=== PATIENT | male | born 1940 | race Caucasian/White ===

== ENCOUNTER 2016-05-11 14:59 | Emergency (ER) | payer OTHER ==
[2016-05-11 15:10] VITALS: RESP 18; TEMP 98.2
[2016-05-11] MEDS ORDERED: NS 500 ML IV ONE (15:28)
--- NOTE | 2016-05-11 15:32 | EDPHY ---
H & P Stated Complaint: sob on and off for 2 days HPI/ROS: CHIEF COMPLAINT: Shortness of breath HISTORY OF PRESENT ILLNESS: intermittent dyspnea over the past week and a half. This started he returned from a trip to [place]. The symptoms are described as difficulty taking a deep breath that then resolved. Associated with shortness of breath at rest. Worse with exertion. No chest pain of any kind over the past 2 days but he did have a short course of very minimal pain previous to that. No fever or chills. No cough or congestion. No lower extremity erythema, edema or pain. However he is concerned because he has the same symptoms he has 6 years ago when he was diagnosed with pulmonary embolism. Does have a recent flight to [place] that he return from last Monday. No other associated complaints or modifying factors. Currently taking aspirin and no other anticoagulants REVIEW OF SYSTEMS: Ten systems reviewed and are negative unless otherwise noted in the HPI EXAMINATION General Appearance: Alert, no distress Head: normocephalic, atraumatic Eyes: Pupils equal and round, no conjunctival pallor or injection ENT, Mouth: Mucous membranes moist. Uvula midline. No erythema or edema. Neck: Normal inspection, supple, non-tender Respiratory: Lungs are clear to auscultation . No wheezing, rhonchi or crackles. No diminishment of distress. Cardiovascular: Tachycardic rate of 106 beats per minute. Normal rhythm. Systolic murmur. pulses intact distally. Gastrointestinal: Abdomen is soft and nontender Back: non-tender, no bony abnormalities Neurological: A&O, nonfocal, normal gait Skin: Warm and dry, no rash Extremities: Nontender, no pedal edema . No evidence of DVT Psychiatric: Mood and affect normal DIFFERENTIAL DIAGNOSES: Including but not limited to PE, shortness of breath, pneumonia, ACS, bronchitis, pleural effusion MDM: 2:30 p.m. dyspnea consistent with previous pulmonary embolism 6 years ago. This has been present on and off for the past week and a half but worsened last night. He has no pain at this time and has had minimal pain at all over the past week and a half. Vital signs are within normal limits with mild tachycardia. I have ordered CT scan of the chest rule out PE. EKG and labs are pending at this time. 4:14 p.m. patient is currently in CT scan at this time. Laboratory studies reveal a normal creatinine on the point of care i-STAT. His CBC is unremarkable. Remainder of labs are pending at this time. EKG is unremarkable for any changes other than a new right bundle branch block. No acute ischemia. 4:40 p.m. contacted by radiologist Dr. Merrill. CT scan of the chest has no evidence of PE. There is some calcification of the ascending aorta and the coronary arteries but no acute findings. I discussed this with the patient at this time. He was pleased to hear this. Vital signs remained stable. His laboratory studies are well within normal limits. This includes a negative troponin and negative BNP. He is comfortable with being discharged home at this time. I do feel he is stable and safe to do so as he has had no chest pain of any kind. He will follow up with his primary care physician to discuss with Pulmonary follow-up should they deem that necessary. He is instructed to return to the emergency department should he have any onset of chest pain. EKG: Interpreted by Dr. Muniz SUPERVISION: Patient was evaluated in conjunction with the supervising physician. Please see their note for details. Source: Patient - Personal History Current Tetanus Diphtheria and Acellular Pertussis (TDAP): Yes - Medical/Surgical History Other PMH: PE, BACK CYST REMOVED, ARTHRITIS, HERNIA - Social History Smoking Status: Never smoked Constitutional: Initial Vital Signs Temperature (C) 98.2 F 05/11/16 15:07 Heart Rate 103 H 05/11/16 15:07 Respiratory Rate 18 05/11/16 15:07 Blood Pressure 163/86 H 05/11/16 15:07 O2 Sat (%) 93 05/11/16 15:07 O2 Delivery Mode Room Air Allergies/Adverse Reactions: No Known Allergies Allergy (Unverified 09/01/09 13:12) Home Medications: Medication Instructions Recorded Lotrel 09/01/09 ASPIRIN 05/11/16 Lipitor 05/11/16 Meloxicam 05/11/16 Medical Decision Making - Data Points Laboratory Results: Laboratory Results 05/11/16 15:45 05/11/16 15:45 05/11/16 05/11/16 05/11/16 15:46 15:45 15:45 WBC RBC Hgb POC Hgb 15.3 gm/dL gm/dL (14.5-17.3) Hct POC Hct 45 % % (42.8-50.6) MCV MCH MCHC RDW Plt Count MPV Neut % (Auto) Lymph % (Auto) [place] % (Auto) Eos % (Auto) Baso % (Auto) Nucleat RBC Rel Count Absolute Neuts (auto) Absolute Lymphs (auto) Absolute Monos (auto) Absolute Eos (auto) Absolute Basos (auto) Absolute Nucleated RBC Immature Gran % Immature Gran # PT 13.5 SEC SEC (12.0-15.0) INR 1.04 (0.83-1.16) APTT 27.8 SEC SEC (23.0-38.0) POC Sodium 139 mEq/L mEq/L (134-144) Sodium 139 mEq/L mEq/L (134-144) POC Potassium 4.0 mEq/L mEq/L (3.3-5.0) Potassium 4.2 mEq/L mEq/L (3.5-5.2) POC Chloride 103 mEq/L mEq/L (96-108) Chloride 102 mEq/L mEq/L (97-110) Carbon Dioxide 26 mEq/l mEq/l (22-31) Anion Gap 11 mEq/L mEq/L (8-16) POC BUN 22 mg/dL mg/dL (7-23) BUN 21 mg/dL mg/dL (7-23) Creatinine 0.9 mg/dL mg/dL (0.7-1.3) POC Creatinine 0.9 mg/dL mg/dL (0.8-1.5) Estimated GFR > 60 Glucose 101 mg/dL H mg/dL (70-100) POC Glucose 104 mg/dL H mg/dL (70-100) Calcium 10.3 mg/dL mg/dL (8.5-10.4) Total Bilirubin 0.6 mg/dL mg/dL (0.1-1.4) Conjugated Bilirubin 0.4 mg/dL mg/dL (0.0-0.5) Unconjugated Bilirubin 0.2 mg/dL mg/dL (0.0-1.1) AST 26 IU/L IU/L (17-59) ALT 34 IU/L IU/L (21-72) Alkaline Phosphatase 72 IU/L IU/L (38-126) Troponin I < 0.012 ng/mL ng/mL (0-0.034) NT-Pro-B Natriuret Pep 95 pg/mL pg/mL (0-125) Total Protein 7.5 g/dL g/dL (6.3-8.2) Albumin 4.4 g/dL g/dL (3.5-5.0) 05/11/16 15:45 WBC 9.23 10^3/uL 10^3/uL (3.80-9.50) RBC 4.85 10^6/uL 10^6/uL (4.40-6.38) Hgb 15.1 g/dL g/dL (13.7-17.5) POC Hgb Hct 43.0 % % (40.0-51.0) POC Hct MCV 88.7 fL fL (81.5-99.8) MCH 31.1 pg pg (27.9-34.1) MCHC 35.1 g/dL g/dL (32.4-36.7) RDW 13.2 % % (11.5-15.2) Plt Count 306 10^3/uL 10^3/uL (150-400) MPV 9.3 fL fL (8.7-11.7) Neut % (Auto) 64.6 % % (39.3-74.2) Lymph % (Auto) 23.3 % % (15.0-45.0) [place] % (Auto) 6.2 % % (4.5-13.0) Eos % (Auto) 4.7 % % (0.6-7.6) Baso % (Auto) 1.0 % % (0.3-1.7) Nucleat RBC Rel Count 0.0 % % (0.0-0.2) Absolute Neuts (auto) 5.97 10^3/uL 10^3/uL (1.70-6.50) Absolute Lymphs (auto) 2.15 10^3/uL 10^3/uL (1.00-3.00) Absolute Monos (auto) 0.57 10^3/uL 10^3/uL (0.30-0.80) Absolute Eos (auto) 0.43 10^3/uL H 10^3/uL (0.03-0.40) Absolute Basos (auto) 0.09 10^3/uL 10^3/uL (0.02-0.10) Absolute Nucleated RBC 0.00 10^3/uL 10^3/uL (0-0.01) Immature Gran % 0.2 % % (0.0-1.1) Immature Gran # 0.02 10^3/uL 10^3/uL (0.00-0.10) PT INR APTT POC Sodium Sodium POC Potassium Potassium POC Chloride Chloride Carbon Dioxide Anion Gap POC BUN BUN Creatinine POC Creatinine Estimated GFR Glucose POC Glucose Calcium Total Bilirubin Conjugated Bilirubin Unconjugated Bilirubin AST ALT Alkaline Phosphatase Troponin I NT-Pro-B Natriuret Pep Total Protein Albumin Medications Given: Discontinued Medications Sodium Chloride (Ns) 500 mls @ 0 mls/hr IV ONCE ONE PRN Reason: As Directed Stop: 05/11/16 15:29 Last Admin: 05/11/16 15:50 Dose: 500 mls Point of Care Test Results: 05/11/16 15:46 POC Sodium 139 POC Potassium 4.0 POC Chloride 103 POC BUN 22 POC Creatinine 0.9 POC Glucose 104 H Departure - Departure Disposition: Home, Routine, Self-Care Clinical Impression: Dyspnea Qualifiers: Dyspnea type: shortness of breath Qualified Code(s): R06.02 - Shortness of breath Condition: Good Instructions: Dyspnea (ED) Additional Instructions: Contact primary care physician for further care and possible pulmonology follow-up. Return to the ER for any chest pain of any kind. Return to the ER for worsening shortness of breath or for any fever. Referrals: Joan Edwards MD [Primary Care Provider] - As per Instructions
--- NOTE | 2016-05-11 15:36 | CPEKG ---
Heart Rate: 92 RR Interval: 652 P-R Interval: 152 QRSD Interval: 142 QT Interval: 396 QTC Interval: 490 P [place]: 61 QRS [place]: 56 T Wave [place]: 30 EKG Severity - ABNORMAL ECG - EKG Impression: SINUS RHYTHM EKG Impression: PROBABLE LEFT ATRIAL ABNORMALITY EKG Impression: RIGHT BUNDLE BRANCH BLOCK EKG Impression: BORDERLINE INFERIOR Q WAVES Electronically Signed By: Jocelyn Muniz 11-May-2016 20:42:30
[2016-05-11] MEDS ORDERED: IOPAMIDOL (ISOVUE 370) 100 ML BTL IV ONE (15:55)
[2016-05-11 16:01] VITALS: PULSE 88
[2016-05-11 16:02] LABS: % IMMATURE GRANULYOCYTES 0.2 % (0.0-1.1); ABSOLUTE IMMATURE GRANULOCYTES 0.02 10^3/uL (0.00-0.10); ADD DIFF? NO; ADD MORPH? NO; ADD SCAN? NO; ATYPICAL LYMPHOCYTE FLAG 10 (0-99); FRAGMENT RBC FLAG 0 (0-99); HEMOGLOBIN 15.1 g/dL (13.7-17.5); LEFT SHIFT FLG 0 (0-99); LIPEMIA HEMOLYSIS FLAG 90 (0-99); MEAN CELL HEMOGLOBIN 31.1 pg (27.9-34.1); MEAN CELL HEMOGLOBIN CONCENTR. 35.1 g/dL (32.4-36.7); MEAN CELL VOLUME 88.7 fL (81.5-99.8); MEAN PLATELET VOLUME 9.3 fL (8.7-11.7); PLATELET CLUMPS FLAG 0 (0-99); PLATELET COUNT 306 10^3/uL (150-400); RED BLOOD CELL COUNT 4.85 10^6/uL (4.40-6.38); RED CELL DISTRIBUTION WIDTH 13.2 % (11.5-15.2)
[2016-05-11 16:13] LABS: ALANINE AMINOTRANSFERASE 34 IU/L (21-72); ALBUMIN 4.4 g/dL (3.5-5.0); ALKALINE PHOSPHATASE 72 IU/L (38-126); ANION GAP 11 mEq/L (8-16); APTT 27.8 SEC (23.0-38.0); ASPARTATE AMINOTRANSFERASE 26 IU/L (17-59); BILIRUBIN,TOTAL 0.6 mg/dL (0.1-1.4); BILIRUBIN-CONJUGATED 0.4 mg/dL (0.0-0.5); BILIRUBIN-UNCONJUGATED 0.2 mg/dL (0.0-1.1); CALCIUM 10.3 mg/dL (8.5-10.4); CARBON DIOXIDE 26 mEq/l (22-31); CHLORIDE 102 mEq/L (97-110); CREATININE 0.9 mg/dL (0.7-1.3); GLOMERULAR FILTRATION RATE > 60; GLUCOSE 101 mg/dL (70-100); INR 1.04 (0.83-1.16); POTASSIUM 4.2 mEq/L (3.5-5.2); PROTIME(PATIENT) 13.5 SEC (12.0-15.0); SODIUM 139 mEq/L (134-144); TOTAL PROTEIN 7.5 g/dL (6.3-8.2)
[2016-05-11 16:24] LABS: TROPONIN I < 0.012 ng/mL (0-0.034)
[2016-05-11 16:58] VITALS: BP 126/74; O2SAT 94
== END 2016-05-11 17:01 | disposition home or self-care (01) ==
DX: R06.02 Shortness of breath (principal); Z79.82 Long term (current) use of aspirin
CPT/HCPCS: 82947-QW; Q9967

== ENCOUNTER → 2017-02-13 | Outpatient (CLI) | payer OTHER, MEDICARE | LOC: BMCIMAGING 07:48 | PROVIDERS: ATTEND Internal Medicine | DX: I65.23 Occlusion and stenosis of bilateral carotid arteries (principal); E04.1 Nontoxic single thyroid nodule ==

== ENCOUNTER → 2018-02-22 | Outpatient (CLI) | payer OTHER, MEDICARE | LOC: FIMAGING 09:06 | PROVIDERS: ATTEND Internal Medicine | DX: E04.1 Nontoxic single thyroid nodule (principal); I65.23 Occlusion and stenosis of bilateral carotid arteries; I70.0 Atherosclerosis of aorta ==

== ENCOUNTER → 2018-03-01 | Outpatient (CLI) | payer OTHER, MEDICARE ==
[~2018-03-01] MED LIST: LIDOCAINE 1% 300 MG/30 ML SDV ONE
== END ==
LOC: FIMAGING 09:45
PROVIDERS: ATTEND Internal Medicine
PROC: 0G9K3ZX Drainage of Thyroid Gland, Percutaneous Approach, Diagnostic (ICD-10-PCS; principal; 2018-03-01)
DX: E04.1 Nontoxic single thyroid nodule (principal)